=== PATIENT | male | born 1970 | race Hispanic/Latino ===

== ENCOUNTER 2019-12-14 09:49 | Emergency (ER) | payer BC, MEDICARE ==
[2019-12-14 10:33] LABS: Hematocrit 41.9 % (35.5-45.6); Hemoglobin 14.9 gm/dl (11.8-15.2); Mean Corpuscular HGB Conc 36 % (32-34); Mean Corpuscular Volume 89 fl (84-94); Platelet Count 327 K/mm3 (140-440); Red Blood Count 4.73 M/mm3 (3.65-5.03); Red Cell Distribution Width 12.5 % (13.2-15.2)
[2019-12-14 10:38] LABS: Bacteria,Urine 1+ /HPF (Negative); Bilirubin,Urine NEG (Negative); Blood,Urine NEG (Negative); Color,Urine Amber (Yellow); Hyaline Casts,Urine 1 /LPF; Mucus,Urine 1+ /HPF
[2019-12-14 10:50] LABS: Amphetamine Screen,Urine PRESUMPTIVE NEGATIVE; Benzodiazepines Screen,Urine PRESUMPTIVE POSITIVE; Cannabinoid Screen,Urine PRESUMPTIVE POSITIVE; Cocaine Screen,Urine PRESUMPTIVE NEGATIVE; Methadone Screen,Urine PRESUMPTIVE NEGATIVE; Opiate Screen,Urine PRESUMPTIVE NEGATIVE
[2019-12-14 10:53] LABS: Calcium 9.5 mg/dL (8.4-10.2)
--- NOTE | 2019-12-14 11:24 | Emergency Department Report ---
ED General Adult HPI - General Chief complaint: Medical Clearance Stated complaint: PSYCH Time Seen by Provider: 12/14/19 10:18 Source: EMS Mode of arrival: Ambulatory Limitations: Other - History of Present Illness Initial comments: Patient presents to the emergency department via EMS from a local progress. Patient was brought to the emergency department because he was found by others acting strange. 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 Is hard to follow the patient because he has significant flight of ideas. He does state that he has a history of bipolar and schizophrenia but denies schizoaffective disorder. Patient states that his is a [employer] pharmacist and she has been giving him ps ychotropic drugs for years without him knowing about it. He also states that there is multiple infections 1 around the floor of his home including sepsis. -: unknown Severity scale (0 -10): 0 Consistency: constant Improves with: none Worsens with: none Associated Symptoms: denies other symptoms Treatments Prior to Arrival: none - Related Data Home Medications Medication Instructions Recorded Confirmed Last Taken Unobtainable 12/14/19 12/14/19 Unknown Allergies Allergy/AdvReac Type Severity Reaction Status Date / Time No Known Allergies Allergy Unverified 12/14/19 10:08 ED Review of Systems ROS: Stated complaint: PSYCH Other details as noted in HPI Constitutional: denies: chills, fever Eyes: denies: eye pain, eye discharge, vision change ENT: denies: ear pain, throat pain Respiratory: denies: cough, shortness of breath, wheezing Cardiovascular: denies: chest pain, palpitations Endocrine: no symptoms reported Gastrointestinal: denies: abdominal pain, nausea, diarrhea Genitourinary: denies: urgency, dysuria Musculoskeletal: denies: back pain, joint swelling, arthralgia Skin: denies: rash, lesions Neurological: denies: headache, weakness, paresthesias Psychiatric: denies: anxiety, depression, auditory hallucinations, visual hallucinations, homicidal thoughts, suicidal thoughts Hematological/Lymphatic: denies: easy bleeding, easy bruising ED Past Medical Hx - Past Medical History Previous Medical History?: Yes Hx Psychiatric Treatment: Yes (Bipolar) - Social History Smoking Status: Former Smoker Substance Use Type: Marijuana - Medications Home Medications: Home Medications Medication Instructions Recorded Confirmed Last Taken Type Unobtainable 12/14/19 12/14/19 Unknown History ED Physical Exam - General Limitations: No Limitations, Other General appearance: alert, in no apparent distress - Head Head exam: Present: atraumatic, normocephalic - Eye Eye exam: Present: normal appearance - ENT ENT exam: Present: mucous membranes moist - Neck Neck exam: Present: normal inspection - Respiratory Respiratory exam: Present: normal lung sounds bilaterally. Absent: respiratory distress - Cardiovascular Cardiovascular Exam: Present: regular rate, normal rhythm. Absent: systolic murmur, diastolic murmur, rubs, gallop - GI/Abdominal GI/Abdominal exam: Present: soft, normal bowel sounds - Rectal Rectal exam: Present: deferred - Extremities Exam Extremities exam: Present: normal inspection - Back Exam Back exam: Present: normal inspection - Neurological Exam Neurological exam: Present: alert, oriented X3, CN II-XII intact. Absent: motor sensory deficit - Psychiatric Psychiatric exam: Present: other (Paranoid; flight of ideas). Absent: homicidal ideation, suicidal ideation - Skin Skin exam: Present: warm, dry, intact, normal color. Absent: rash ED Course Vital Signs 12/14/19 12/14/19 12/14/19 10:04 10:09 11:05 Temperature 98.2 F Pulse Rate 110 H 95 H Respiratory 18 18 18 Rate Blood Pressure 156/110 Blood Pressure 181/127 [Left] O2 Sat by Pulse 97 97 97 Oximetry 12/14/19 17:28 Temperature 97.8 F Pulse Rate 90 Respiratory 16 Rate Blood Pressure Blood Pressure 147/89 [Left] O2 Sat by Pulse 100 Oximetry ED Medical Decision Making - Lab Data Result diagrams: 12/14/19 10:19 12/14/19 10:19 Lab Results 12/14/19 12/14/19 12/14/19 Range/Units 10:00 10:00 10:19 WBC 7.2 (4.5-11.0) K/mm3 RBC 4.73 (3.65-5.03) M/mm3 Hgb 14.9 (11.8-15.2) gm/dl Hct 41.9 (35.5-45.6) % MCV 89 (84-94) fl MCH 32 (28-32) pg MCHC 36 H (32-34) % RDW 12.5 L (13.2-15.2) % Plt Count 327 (140-440) K/mm3 Keith % (Auto) Cutter [place] Add Manual Diff Complete Total Counted 100 Seg Neuts % (Manual) 70.0 (40.0-70.0) % Band Neutrophils % 0 % Lymphocytes % (Manual) 20.0 (13.4-35.0) % Reactive Lymphs % (Man) 0 % Monocytes % (Manual) 10.0 H (0.0-7.3) % Eosinophils % (Manual) 0 (0.0-4.3) % Basophils % (Manual) 0 (0.0-1.8) % Metamyelocytes % 0 % Myelocytes % 0 % Promyelocytes % 0 % Blast Cells % 0 % Nucleated RBC % Not Reportable Seg Neutrophils # Man 5.0 (1.8-7.7) K/mm3 Band Neutrophils # 0.0 K/mm3 Lymphocytes # (Manual) 1.4 (1.2-5.4) K/mm3 Abs React Lymphs (Man) 0.0 K/mm3 Monocytes # (Manual) 0.7 (0.0-0.8) K/mm3 Eosinophils # (Manual) 0.0 (0.0-0.4) K/mm3 Basophils # (Manual) 0.0 (0.0-0.1) K/mm3 Metamyelocytes # 0.0 K/mm3 Myelocytes # 0.0 K/mm3 Promyelocytes # 0.0 K/mm3 Blast Cells # 0.0 K/mm3 WBC Morphology Not Reportable Hypersegmented Neuts Not Reportable Hyposegmented Neuts Not Reportable Hypogranular Neuts Not Reportable Smudge Cells Not Reportable Toxic Granulation Not Reportable Toxic Vacuolation Not Reportable Dohle Bodies Not Reportable Pelger-Huet Anomaly Not Reportable Adilia Rods Not Reportable Platelet Estimate Consistent w auto Clumped Platelets Not Reportable Plt Clumps, EDTA Not Reportable Large Platelets Rare Giant Platelets Not Reportable Platelet Satelliting Not Reportable Plt Morphology Comment Not Reportable RBC Morphology Normal Dimorphic RBCs Not Reportable Polychromasia Not Reportable Hypochromasia Not Reportable Poikilocytosis Not Reportable Anisocytosis Not Reportable Microcytosis Not Reportable Macrocytosis Not Reportable Spherocytes Not Reportable Pappenheimer Bodies Not Reportable Sickle Cells Not Reportable Target Cells Not Reportable Tear Drop Cells Not Reportable Ovalocytes Not Reportable Helmet Cells Not Reportable Schroeder-[place] Bodies Not Reportable [place] Rings Not Reportable Dre Cells Not Reportable Bite Cells Not Reportable Crenated Cell Not Reportable Elliptocytes Not Reportable Acanthocytes (Spur) Not Reportable Rouleaux Not Reportable Hemoglobin C Crystals Not Reportable Schistocytes Not Reportable Malaria parasites Not Reportable Marky Bodies Not Reportable Hem Pathologist Commnt No Sodium (137-145) mmol/L Potassium (3.6-5.0) mmol/L Chloride (98-107) mmol/L Carbon Dioxide (22-30) mmol/L Anion Gap mmol/L BUN (9-20) mg/dL Creatinine (0.8-1.3) mg/dL Estimated GFR ml/min BUN/Creatinine Ratio % Glucose (75-100) mg/dL Calcium (8.4-10.2) mg/dL Urine Color Rachel (Yellow) Urine Turbidity Slightly-cloudy (Clear) Urine pH 5.0 (5.0-7.0) Ur Specific [place] 1.025 (1.003-1.030) Urine Protein 100 mg/dl (Negative) mg/dL Urine Glucose (UA) Neg (Negative) mg/dL Urine Ketones 20 (Negative) mg/dL Urine Blood Neg (Negative) Urine Nitrite Neg (Negative) Urine Bilirubin Neg (Negative) Urine Urobilinogen 2.0 (<2.0) mg/dL Ur Leukocyte Esterase Sm (Negative) Urine WBC (Auto) 14.0 H (0.0-6.0) /HPF Urine RBC (Auto) 7.0 (0.0-6.0) /HPF U Epithel Cells (Auto) < 1.0 (0-13.0) /HPF Urine Bacteria (Auto) 1+ (Negative) /HPF Hyaline Casts 1 /LPF Urine Mucus 1+ /HPF Salicylates (2.8-20.0) mg/dL Urine Opiates Screen Presumptive negative Urine Methadone Screen Presumptive negative Acetaminophen (10.0-30.0) ug/mL Ur Barbiturates Screen Presumptive negative Ur Phencyclidine Scrn Presumptive negative Ur Amphetamines Screen Presumptive negative U Benzodiazepines Scrn Presumptive positive Urine Cocaine Screen Presumptive negative U Marijuana (THC) Screen Presumptive positive Drugs of Abuse Note Disclamer 12/14/19 12/14/19 12/14/19 Range/Units 10:19 10:19 10:19 WBC (4.5-11.0) K/mm3 RBC (3.65-5.03) M/mm3 Hgb (11.8-15.2) gm/dl Hct (35.5-45.6) % MCV (84-94) fl MCH (28-32) pg MCHC (32-34) % RDW (13.2-15.2) % Plt Count (140-440) K/mm3 Keith % (Auto) Add Manual Diff Total Counted Seg Neuts % (Manual) (40.0-70.0) % Band Neutrophils % % Lymphocytes % (Manual) (13.4-35.0) % Reactive Lymphs % (Man) % Monocytes % (Manual) (0.0-7.3) % Eosinophils % (Manual) (0.0-4.3) % Basophils % (Manual) (0.0-1.8) % Metamyelocytes % % Myelocytes % % Promyelocytes % % Blast Cells % % Nucleated RBC % Seg Neutrophils # Man (1.8-7.7) K/mm3 Band Neutrophils # K/mm3 Lymphocytes # (Manual) (1.2-5.4) K/mm3 Abs React Lymphs (Man) K/mm3 Monocytes # (Manual) (0.0-0.8) K/mm3 Eosinophils # (Manual) (0.0-0.4) K/mm3 Basophils # (Manual) (0.0-0.1) K/mm3 Metamyelocytes # K/mm3 Myelocytes # K/mm3 Promyelocytes # K/mm3 Blast Cells # K/mm3 WBC Morphology Hypersegmented Neuts Hyposegmented Neuts Hypogranular Neuts Smudge Cells Toxic Granulation Toxic Vacuolation Dohle Bodies Pelger-Huet Anomaly Adilia Rods Platelet Estimate Clumped Platelets Plt Clumps, EDTA Large Platelets Giant Platelets Platelet Satelliting Plt Morphology Comment RBC Morphology Dimorphic RBCs Polychromasia Hypochromasia Poikilocytosis Anisocytosis Microcytosis Macrocytosis Spherocytes Pappenheimer Bodies Sickle Cells Target Cells Tear Drop Cells Ovalocytes Helmet Cells Schroeder-[place] Bodies [place] Rings Dre Cells Bite Cells Crenated Cell Elliptocytes Acanthocytes (Spur) Rouleaux Hemoglobin C Crystals Schistocytes Malaria parasites Marky Bodies Hem Pathologist Commnt Sodium 142 (137-145) mmol/L Potassium 3.9 (3.6-5.0) mmol/L Chloride 100.6 (98-107) mmol/L Carbon Dioxide 25 (22-30) mmol/L Anion Gap 20 mmol/L BUN 7 L (9-20) mg/dL Creatinine 1.3 (0.8-1.3) mg/dL Estimated GFR 58 ml/min BUN/Creatinine Ratio 5 % Glucose 108 H (75-100) mg/dL Calcium 9.5 (8.4-10.2) mg/dL Urine Color (Yellow) Urine Turbidity (Clear) Urine pH (5.0-7.0) Ur Specific [place] (1.003-1.030) Urine Protein (Negative) mg/dL Urine Glucose (UA) (Negative) mg/dL Urine Ketones (Negative) mg/dL Urine Blood (Negative) Urine Nitrite (Negative) Urine Bilirubin (Negative) Urine Urobilinogen (<2.0) mg/dL Ur Leukocyte Esterase (Negative) Urine WBC (Auto) (0.0-6.0) /HPF Urine RBC (Auto) (0.0-6.0) /HPF U Epithel Cells (Auto) (0-13.0) /HPF Urine Bacteria (Auto) (Negative) /HPF Hyaline Casts /LPF Urine Mucus /HPF Salicylates < 0.3 L (2.8-20.0) mg/dL Urine Opiates Screen Urine Methadone Screen Acetaminophen 5.0 L (10.0-30.0) ug/mL Ur Barbiturates Screen Ur Phencyclidine Scrn Ur Amphetamines Screen U Benzodiazepines Scrn Urine Cocaine Screen U Marijuana (THC) Screen Drugs of Abuse Note - Radiology Data Radiology results: report reviewed - Medical Decision Making 1013 applied Medically cleared Mental health evaluation.and awaiting placement UTI treated with Bactrim and orders have been placed for her to be given every 12 hours Critical care attestation.: If time is entered above; I have spent that time in minutes in the direct care of this critically ill patient, excluding procedure time. ED Disposition Clinical Impression: Manic behavior, UTI (urinary tract infection) Disposition: [id number]/TX-[id number] PSY HOSP/PSY UNIT Is pt being admited?: No Does the pt Need Aspirin: No Condition: Stable Referrals: PRIMARY CARE, [Primary Care Provider] - 3-5 Days
[2019-12-14 11:53] LABS: Basophils % (Manual) 0 % (0.0-1.8); Eosinophils % (Manual) 0 % (0.0-4.3); Large Platelets Rare; Platelet Estimate Consistent w Auto; RBC Morphology Normal; Total Cells Counted 100
[2019-12-14] MEDS ORDERED: LORazepam 2 MG/ML VIAL ONE (12:33)
[2019-12-14] MEDS ORDERED: LORazepam 2 MG/ML VIAL IM ONE (12:57)
[2019-12-14] MEDS ORDERED: ZIPRASIDONE MESYLATE 20 MG VIAL IM ONE ×2 (20:23→20:40)
[2019-12-14] MEDS: SULFAMETHOXAZOLE/TRIMETHOPRIM 800/160MG DS TAB PO SCH ×2 (20:50→22:10)
[2019-12-15] MEDS ORDERED: ZIPRASIDONE MESYLATE 20 MG VIAL IM ONE ×2 (09:49→09:50)
[2019-12-15] MEDS ORDERED: LORazepam 2 MG/ML VIAL IM ONE (09:50)
[2019-12-15] MEDS ORDERED: WATER FOR INJ Sterile (PF) 10 ML ONE (09:50)
[2019-12-15] MEDS: SULFAMETHOXAZOLE/TRIMETHOPRIM 800/160MG DS TAB PO SCH (10:23)
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
[2019-12-15] MEDS: VALPROIC ACID 250 MG CAP PO SCH ×2 (13:53→20:17)
[2019-12-15] MEDS ORDERED: PALIPERIDONE ER 3 MG TAB PO ONE (15:46)
[2019-12-15 20:15] VITALS: BP 153/104
== END 2019-12-15 20:29 ==
LOC: ED 09:49
DX: F30.10 Manic episode without psychotic symptoms, unspecified (principal); N39.0 Urinary tract infection, site not specified; F25.0 Schizoaffective disorder, bipolar type; F12.90 Cannabis use, unspecified, uncomplicated; Z87.891 Personal history of nicotine dependence; Z20.828 Contact with and (suspected) exposure to other viral communicable diseases
CPT/HCPCS: 36415; 80048; 80307; 81001; 85007; 85025; 87086; 93005; 96372; 99284; J2060; J3486; U0003; 80320; G0480

== ENCOUNTER 2019-12-15 18:27 | Inpatient (IN) | payer MEDICARE, OTHER ==
[2019-12-15] MEDS ORDERED: HALOPERIDOL LACTATE 5 MG/1 ML INJ IM PRN (19:32)
[2019-12-15] MEDS: traZODone 50 MG TAB PO SCH (22:04)
[2019-12-15] MEDS: MELATONIN 5 MG TAB PO PRN (22:04)
[2019-12-15] MEDS: VALPROIC ACID 250 MG CAP PO SCH (22:04)
[2019-12-15] MEDS: LORazepam 2 MG/ML VIAL IM PRN (23:25)
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
[2019-12-16] MEDS: VALPROIC ACID 250 MG CAP PO SCH ×2 (09:04→21:40)
[2019-12-16] MEDS: PALIPERIDONE ER 3 MG TAB PO SCH (09:04)
[2019-12-16] MEDS: LORazepam 2 MG/ML VIAL IM PRN (12:00)
[2019-12-16] MEDS ORDERED: HALOPERIDOL LACTATE 5 MG/1 ML INJ IM PRN (12:01)
[2019-12-16] MEDS ORDERED: BENZTROPINE 2 MG/2 ML INJ IM SCH (13:00)
[2019-12-16 17:29] LABS: Chol/HDL Ratio 3.6 %
[2019-12-16] MEDS: traZODone 50 MG TAB PO SCH (21:40)
--- NOTE | 2019-12-17 07:40 | Consultation ---
History of Present Illness - Reason for Consult Consult date: 12/17/19 Medical management Requesting physician: SATHISH SHELBY - History of Present Illness 49-year-old male with psychiatric history was admitted to [facility] for bizarre behavior. Patient did not have any known medical condition. Blood pressure is within normal limit, labs are unremarkable. Patient did not have any complaints. The only thing she said he had is stress and anxiety. REVIEW OF SYSTEMS: GENERAL: no weight change, no fatigue, no fever HEAD: no head ache EYES: no blurry vision, no acute visual loss EARS: no hearing loss, no discharge, no earache NOSE: no stuffiness, no sneezing, no discharge MOUTH, THROAT AND NECK: no bleeding gums, no sore throat, no swollen neck CARDIAC: no palpitations, no dyspnea on exertion, no orthopnea, no PND, no edema, no chest pain RESPIRATORY: no shortness of breath, no wheeze, no cough, no sputum, no hemoptysis, no asthma GI: no decreased appetite, no nausea, no vomiting, no dysphagia, no diarrhea, no constipation, no abdominal pain URINARY: No urgency, hematuria, dysuria or frequency. MUSCULOSKELETAL: no muscle weakness, no pain, no joint stiffness NEUROLOGIC: no loss of sensation/numbness, no tingling, no tremors, no weakness/paralysis HEMATOLOGIC: no anemia, no easy bruising SKIN: no rashes ENDOCRINE: no heat/cold intolerance, no polyuria, no polydipsia, no thyroid problems, no diabetes PSYCHIATRIC: no anxiety, no depression, no suicidal ideations Past History Past Medical History: No medical history Past Surgical History: Other (Chest tube insertion for pneumothorax, back surgery) Social history: smoking (Patient smokes marijuana), full code. denies: alcohol abuse, prescription drug abuse, IV drug use Family history: no significant family history Medications and Allergies Allergies Allergy/AdvReac Type Severity Reaction Status Date / Time No Known Allergies Allergy Unverified 12/14/19 10:08 Home Medications Medication Instructions Recorded Confirmed Last Taken Type Bactrim DS TAB 1 tab PO BID 12/16/19 12/16/[address] 250 mg PO BID 12/16/19 12/16/19 Unknown History Active Meds: Active Medications Benztropine Mesylate (Cogentin) 2 mg IM PRN DAVID Stop: 12/17/19 13:01 Last Admin: 12/16/19 12:57 Dose: 2 mg Documented by: Haloperidol Lactate (Haldol) 5 mg IM ONCE PRN PRN Reason: Agitation Last Admin: 12/15/19 23:24 Dose: 5 mg Documented by: Haloperidol Lactate (Haldol) 10 mg IM ONCE PRN PRN Reason: Agitation Last Admin: 12/16/19 12:07 Dose: 10 mg Documented by: Lorazepam (Ativan) 2 mg IM Q4HR PRN PRN Reason: Agitation Last Admin: 12/15/19 23:25 Dose: 2 mg Documented by: Melatonin (Melatonin) 5 mg PO QHS PRN PRN Reason: Sleep Last Admin: 12/15/19 22:04 Dose: 5 mg Documented by: Paliperidone (Invega) 6 mg PO QDAY [facility] Last Admin: 12/16/19 09:04 Dose: 6 mg Documented by: Trazodone HCl (Desyrel) 50 mg PO QHS [facility] Last Admin: 12/16/19 21:40 Dose: 50 mg Documented by: Valproic Acid (Depakene) 250 mg PO BID [facility] Last Admin: 12/16/19 21:40 Dose: 250 mg Documented by: Exam - Physical Exam Narrative exam: Not in cardiopulmonary distress. The patient appeared well nourished and normally developed. Vital signs as documented. Head exam is unremarkable. No scleral icterus . Neck is without jugular venous distension, thyromegaly, or carotid bruits. Lungs are clear to auscultation. Cardiac exam reveals regular rate and Rhythm. Abdominal exam reveals normal bowel sounds, nontender, no organomegaly. Extremities are nonedematous and both femoral and pedal pulses are normal. RIPSHEAR OPERATOR: Alert and oriented 3. No focal weakness. - Constitutional Vitals: Temp Pulse Resp BP Pulse Ox 97.6 F 77 18 118/71 95 12/16/19 22:00 12/16/19 22:00 12/16/19 22:00 12/16/19 22:00 12/16/19 22:00 Assessment and Plan Patient admitted to [facility] for bizarre behavior And is on Depakote No previous medical conditions, labs and vital signs are unremarkable. Physical examination is normal. Thank you for the consult Please give me a call if you have any questions.
[2019-12-17] MEDS: PALIPERIDONE ER 3 MG TAB PO SCH (09:54)
[2019-12-17] MEDS: VALPROIC ACID 250 MG CAP PO SCH ×2 (09:54→22:26)
--- NOTE | 2019-12-17 13:32 | Progress Note ---
Subjective Date of service: 12/17/19 Principal diagnosis: Bipolar Subjective Comment: During my interview with the patient, he is in the dayroom, he is a/o x 3. He says "I don't want to discuss it" when I ask him why he's here. He denies SI/HI. He also denies hallucinations of any kind. The nursing staff states the patient is hyperverbal, verbally aggressive, and delusional. Reason for continued inpatient treatment: The patient continues to be manic and have behavioral disturbances REVIEW OF SYSTEMS Constitutional: Negative for weight loss ENT: Negative for stridor Respiratory: Negative for cough or hemoptysis All other systems reviewed and are negative MENTAL STATUS EXAMINATION General Appearance and Behavior: Age appropriate, good hygiene, not wearing appropriate clothes, good eye contact, cooperative polite with questioning. Cooperation: Participating/engaged Psychomotor Behavior: Psychomotor agitation Mood: Good Affect and affective range: euthymic, euphoric Thought Process:Circumstantial, Illogical, Thought Content: Illogical Speech: Hyperverbal at times Suicidal Ideation: Denies SI Homicidal Ideation: Denies HIl Impulse Control: Impaired Insight and Judgment: Limited insight and judgment Memory: Normal, Attention: Divided attention impaired Orientation: Alert, oriented, Assessment and Plan (1) Bipolar 1 disorder with moderate rupal Current Visit: Yes Status: Acute Treatment Plan Patient admitted for inpatient psychiatric evaluation, medication adjustment and close monitoring The patient's behavior, mood, sleep and appetite will be closely monitored. Patient enrolled in individual and group therapeutic sessions and encouraged to attend. Patient provided with a safe and structured environment. Patient's physical health needs will be addressed by the Hospitalist. Hospitalist Consulted Labs including CBC, CMP, Lipid profile and Hemoglobin A1C levels ordered for baseline reference Valproic level friday Social Assessment will be completed and the Customs Patrol Officer will work with patient and family to ensure a suitable and safe disposition Medication adjustment will be made as clinically indicated Increase Depakote DR 500mg po BID Usual Wellness Orthodox/Preservation: - Start Trazodone 50 mg po QHS & 50 mg po QHS PRN between 10 PM & 2 AM for insomnia - Start Melatonin 5 mg po QHS to promote circadian rhythm - Start [place]-3 for brain health, reduce impulsivity, and as adjunctive treatment for mood disorder, continue upon discharge given overall benefits. - Start B1 prophylaxis with 200 mg po for 5 days The patient agreed on the treatment plan, understood the risk, benefit, alternative treatment, potential consequence of no treatment, and gave informed consent. Medications and Allergies Allergies Allergy/AdvReac Type Severity Reaction Status Date / Time No Known Allergies Allergy Unverified 12/14/19 10:08 Home Medications Medication Instructions Recorded Confirmed Last Taken Type Bactrim DS TAB 1 tab PO BID 12/16/19 12/16/[address] 250 mg PO BID 12/16/19 12/16/19 Unknown History Active Meds: Active Medications Haloperidol Lactate (Haldol) 10 mg IM ONCE PRN PRN Reason: Agitation Last Admin: 12/16/19 12:07 Dose: 10 mg Documented by: Lorazepam (Ativan) 2 mg IM Q4HR PRN PRN Reason: Agitation Last Admin: 12/15/19 23:25 Dose: 2 mg Documented by: Melatonin (Melatonin) 5 mg PO QHS PRN PRN Reason: Sleep Last Admin: 12/15/19 22:04 Dose: 5 mg Documented by: Paliperidone (Invega) 6 mg PO QDAY [facility] Last Admin: 12/17/19 09:54 Dose: 6 mg Documented by: Trazodone HCl (Desyrel) 50 mg PO QHS [facility] Last Admin: 12/16/19 21:40 Dose: 50 mg Documented by: Valproic Acid (Depakene) 250 mg PO BID [facility] Last Admin: 12/17/19 09:54 Dose: 250 mg Documented by: Results - Results Labs/Vitals: Laboratory Last Values POC Glucose 95 mg/dL (70-105) 12/15/19 21:59 Hemoglobin A1c 5.8 % (4-6) 12/16/19 16:50 Triglycerides 133 mg/dL (2-149) 12/16/19 16:50 Cholesterol 191 mg/dL (50-199) 12/16/19 16:50 LDL Cholesterol Direct 122 mg/dL (50-130) 12/16/19 16:50 HDL Cholesterol 53 mg/dL (40-59) 12/16/19 16:50 Cholesterol/HDL Ratio 3.60 % 12/16/19 16:50 TSH 1.150 mlU/mL (0.270-4.200) 12/16/19 16:50 Last Vital Signs Temp 98.0 F 12/17/19 07:12 Pulse 97 H 12/17/19 07:12 Resp 18 12/17/19 07:12 BP 115/75 12/17/19 07:12 Pulse Ox 95 12/17/19 07:12
[2019-12-17] MEDS ORDERED: VALPROIC ACID 250 MG CAP PO ONE (14:00)
[2019-12-17] MEDS: traZODone 50 MG TAB PO SCH (22:25)
[2019-12-18] MEDS: VALPROIC ACID 250 MG CAP PO SCH ×2 (10:45→21:25)
--- NOTE | 2019-12-18 13:30 | Progress Note ---
Subjective Date of service: 12/18/19 Principal diagnosis: Bipolar Subjective Comment: The patient's medical record was reviewed and the patient's progress was discussed with the nursing staff. The activity therapist note states the patient placed his feet on the table and was redirected again. pt was aggressively cooperative aeb throwing his blanket down and placing his feet off the table firmly. During my interview with the patient, he is in the dayroom, he is a/o x 3. He says, "I'm doing fine" when asked. He says "I didn't sleep too good." The patient denies SI/HI, stating I never had. He also denies hallucinations at times. Reason for continued inpatient treatment: The patient continues to be manic and have behavioral disturbances REVIEW OF SYSTEMS Constitutional: Negative for weight loss ENT: Negative for stridor Respiratory: Negative for cough or hemoptysis All other systems reviewed and are negative MENTAL STATUS EXAMINATION General Appearance and Behavior: Age appropriate, good hygiene, not wearing appropriate clothes, good eye contact, cooperative polite with questioning. Cooperation: Participating/engaged Psychomotor Behavior: Psychomotor agitation Mood: Good Affect and affective range: euthymic, euphoric Thought Process:Circumstantial, Illogical, Thought Content: Illogical Speech: Hyperverbal at times Suicidal Ideation: Denies SI Homicidal Ideation: Denies HIl Impulse Control: Impaired Insight and Judgment: Limited insight and judgment Memory: Normal, Attention: Divided attention impaired Orientation: Alert, oriented, Assessment and Plan (1) Bipolar 1 disorder with moderate rupal Current Visit: Yes Status: Acute Treatment Plan Patient admitted for inpatient psychiatric evaluation, medication adjustment and close monitoring The patient's behavior, mood, sleep and appetite will be closely monitored. Patient enrolled in individual and group therapeutic sessions and encouraged to attend. Patient provided with a safe and structured environment. Patient's physical health needs will be addressed by the Hospitalist. Hospitalist Consulted Labs including CBC, CMP, Lipid profile and Hemoglobin A1C levels ordered for baseline reference Valproic level Friday Social Assessment will be completed and the Ore Buyer will work with patient and family to ensure a suitable and safe disposition Medication adjustment will be made as clinically indicated Increase Depakote DR 500mg po BID yesterday Increased Trazodone 75mg po qhs Usual Wellness Restorationism/Preservation: - Start Trazodone 50 mg po QHS & 50 mg po QHS PRN between 10 PM & 2 AM for insomnia - Start Melatonin 5 mg po QHS to promote circadian rhythm - Start [place]-3 for brain health, reduce impulsivity, and as adjunctive treatment for mood disorder, continue upon discharge given overall benefits. - Start B1 prophylaxis with 200 mg po for 5 days The patient agreed on the treatment plan, understood the risk, benefit, alternative treatment, potential consequence of no treatment, and gave informed consent. Medications and Allergies Allergies Allergy/AdvReac Type Severity Reaction Status Date / Time No Known Allergies Allergy Unverified 12/14/19 10:08 Home Medications Medication Instructions Recorded Confirmed Last Taken Type Bactrim DS TAB 1 tab PO BID 12/16/19 12/16/[address] 250 mg PO BID 12/16/19 12/16/19 Unknown History Active Meds: Active Medications Haloperidol Lactate (Haldol) 10 mg IM ONCE PRN PRN Reason: Agitation Last Admin: 12/16/19 12:07 Dose: 10 mg Documented by: Lorazepam (Ativan) 2 mg IM Q4HR PRN PRN Reason: Agitation Last Admin: 12/15/19 23:25 Dose: 2 mg Documented by: Melatonin (Melatonin) 5 mg PO QHS PRN PRN Reason: Sleep Last Admin: 12/15/19 22:04 Dose: 5 mg Documented by: Paliperidone (Invega) 6 mg PO QDAY [facility] Last Admin: 12/17/19 09:54 Dose: 6 mg Documented by: Trazodone HCl (Desyrel) 50 mg PO QHS [facility] Last Admin: 12/17/19 22:25 Dose: 50 mg Documented by: Valproic Acid (Depakene) 500 mg PO BID [facility] Last Admin: 12/17/19 22:26 Dose: 500 mg Documented by: Results - Results Labs/Vitals: Laboratory Last Values POC Glucose 95 mg/dL (70-105) 12/15/19 21:59 Hemoglobin A1c 5.8 % (4-6) 12/16/19 16:50 Triglycerides 133 mg/dL (2-149) 12/16/19 16:50 Cholesterol 191 mg/dL (50-199) 12/16/19 16:50 LDL Cholesterol Direct 122 mg/dL (50-130) 12/16/19 16:50 HDL Cholesterol 53 mg/dL (40-59) 12/16/19 16:50 Cholesterol/HDL Ratio 3.60 % 12/16/19 16:50 TSH 1.150 mlU/mL (0.270-4.200) 12/16/19 16:50 Last Vital Signs Temp 97.9 F 12/17/19 22:00 Pulse 77 12/17/19 22:00 Resp 16 12/17/19 22:00 BP 124/83 12/17/19 22:00 Pulse Ox 96 12/17/19 22:00
[2019-12-18] MEDS: PALIPERIDONE ER 3 MG TAB PO SCH (16:20)
[2019-12-18] MEDS ORDERED: traZODone 50 MG TAB PO SCH (22:00)
[2019-12-19] MEDS: PALIPERIDONE ER 3 MG TAB PO SCH (10:29)
[2019-12-19] MEDS: VALPROIC ACID 250 MG CAP PO SCH ×2 (10:29→21:06)
--- NOTE | 2019-12-19 12:04 | Progress Note ---
Subjective Date of service: 12/19/19 Principal diagnosis: Bipolar Subjective Comment: The patient's medical record was reviewed and the patient's progress was discussed with the nursing staff. The patient spent the evening isolated in his room. He presents as depressed. He was encouraged to join his peers but stated he didn't want to right now. The patient is pleasant and cooperative with staff. During my interview with the patient, he is in the dayroom, he is a/o x 3. He says, "I'm okay when asked." He then says "I'm tired. I didn't get a good night's sleep last night." He denies hallucinations of any kind. He also denies SI/HI. Reason for continued inpatient treatment: The patient at times has aggressive behavior, appears depressed and isolates himself. REVIEW OF SYSTEMS Constitutional: Negative for weight loss ENT: Negative for stridor Respiratory: Negative for cough or hemoptysis All other systems reviewed and are negative MENTAL STATUS EXAMINATION General Appearance and Behavior: Age appropriate, good hygiene, not wearing appropriate clothes, fair eye contact, cooperative polite with questioning. Cooperation: Participating/engaged Psychomotor Behavior: Psychomotor agitation Mood: okay Affect and affective range: Restricted Thought Process:Circumstantial, Illogical, Thought Content: Logical Speech: Normal tone and pace Suicidal Ideation: Denies SI Homicidal Ideation: Denies HIl Impulse Control: Impaired Insight and Judgment: Limited insight and judgment Memory: Normal Orientation: Alert, oriented, Assessment and Plan (1) Bipolar 1 disorder with moderate rupal Current Visit: Yes Status: Acute Treatment Plan Patient admitted for inpatient psychiatric evaluation, medication adjustment and close monitoring The patient's behavior, mood, sleep and appetite will be closely monitored. Patient enrolled in individual and group therapeutic sessions and encouraged to attend. Patient provided with a safe and structured environment. Patient's physical health needs will be addressed by the Hospitalist. Hospitalist Consulted Labs including CBC, CMP, Lipid profile and Hemoglobin A1C levels ordered for baseline reference Valproic level Friday Social Assessment will be completed and the [facility] will work with patient and family to ensure a suitable and safe disposition Medication adjustment will be made as clinically indicated Will adjust Depakote dose based on Valproic level tomorrow. Increased Trazodone 100mg po qhs Usual Wellness Restorationism/Preservation: - Start Trazodone 50 mg po QHS & 50 mg po QHS PRN between 10 PM & 2 AM for insomnia - Start Melatonin 5 mg po QHS to promote circadian rhythm - Start [place]-3 for brain health, reduce impulsivity, and as adjunctive treatment for mood disorder, continue upon discharge given overall benefits. - Start B1 prophylaxis with 200 mg po for 5 days The patient agreed on the treatment plan, understood the risk, benefit, alternative treatment, potential consequence of no treatment, and gave informed consent. Medications and Allergies Allergies Allergy/AdvReac Type Severity Reaction Status Date / Time No Known Allergies Allergy Unverified 12/14/19 10:08 Home Medications Medication Instructions Recorded Confirmed Last Taken Type Bactrim DS TAB 1 tab PO BID 12/16/19 12/16/[address] 250 mg PO BID 12/16/19 12/16/19 Unknown History Active Meds: Active Medications Haloperidol Lactate (Haldol) 10 mg IM ONCE PRN PRN Reason: Agitation Last Admin: 12/16/19 12:07 Dose: 10 mg Documented by: Lorazepam (Ativan) 2 mg IM Q4HR PRN PRN Reason: Agitation Last Admin: 12/15/19 23:25 Dose: 2 mg Documented by: Melatonin (Melatonin) 5 mg PO QHS PRN PRN Reason: Sleep Last Admin: 12/15/19 22:04 Dose: 5 mg Documented by: Paliperidone (Invega) 6 mg PO QDAY [facility] Last Admin: 12/19/19 10:29 Dose: 6 mg Documented by: Trazodone HCl (Desyrel) 75 mg PO QHS [facility] Last Admin: 12/18/19 21:24 Dose: 75 mg Documented by: Valproic Acid (Depakene) 500 mg PO BID [facility] Last Admin: 12/19/19 10:29 Dose: 500 mg Documented by: Results - Results Labs/Vitals: Laboratory Last Values POC Glucose 95 mg/dL (70-105) 12/15/19 21:59 Hemoglobin A1c 5.8 % (4-6) 12/16/19 16:50 Triglycerides 133 mg/dL (2-149) 12/16/19 16:50 Cholesterol 191 mg/dL (50-199) 12/16/19 16:50 LDL Cholesterol Direct 122 mg/dL (50-130) 12/16/19 16:50 HDL Cholesterol 53 mg/dL (40-59) 12/16/19 16:50 Cholesterol/HDL Ratio 3.60 % 12/16/19 16:50 TSH 1.150 mlU/mL (0.270-4.200) 12/16/19 16:50 Last Vital Signs Temp 97.9 F 12/19/19 09:06 Pulse 72 12/18/19 20:09 Resp 18 12/19/19 09:06 BP 117/75 12/19/19 09:06 Pulse Ox 97 12/18/19 20:09
[2019-12-19] MEDS: MELATONIN 5 MG TAB PO PRN (21:06)
[2019-12-19] MEDS ORDERED: traZODone 100 MG TAB PO SCH (22:00)
[2019-12-20 08:51] VITALS: BP 113/59
[2019-12-20] MEDS: VALPROIC ACID 250 MG CAP PO SCH (09:07)
[2019-12-20] MEDS: PALIPERIDONE ER 3 MG TAB PO SCH (09:07)
--- NOTE | 2019-12-20 09:20 | Discharge Summary ---
Providers - Providers Date of Admission: 12/15/19 21:20 Date of discharge: 12/20/19 Attending physician: STEPHANIE KERNS MD 12/15/19 19:30 Consult to Physician [CONS] Routine Comment: Consulting Provider: STEPHANIE OCHOA Physician Instructions: Reason For Exam: Medical Management Primary care physician: RUBBER MIXER Hospitalization Reason for admission: aggression Admitting Diagnosis: F31.2 - BIPOLAR DISORD, CRNT EPISODE MANIC SEVERE W PSYCH FEATURES Condition: Stable Hospital course: The patient was provided inpatient psychiatric treatment with safe and supportive care, medication adjustment, adverse effect monitoring, medical evaluations, medical treatments, assessment and psycho-education. The patient's mood, cognition, behavior, moral support are improved and stabilized. St the time of discharge, the patient had no endangering behavior and no debilitating adverse effects. The patient agreed on potential consequences of no treatment and gave informed consent. Disposition: DC-01 TO HOME OR SELFCARE Time spent for discharge: 38 Allergies/Adverse Reactions: Allergies No Known Allergies Allergy (Unverified 12/14/19 10:08) Vital Signs: Last Vital Signs Temp 97.8 F 12/20/19 07:13 Pulse 80 12/20/19 07:13 Resp 18 12/20/19 07:13 BP 113/59 12/20/19 07:13 Pulse Ox 94 12/20/19 07:13 Last Lab: Laboratory Last Values POC Glucose 95 mg/dL (70-105) 12/15/19 21:59 Hemoglobin A1c 5.8 % (4-6) 12/16/19 16:50 Triglycerides 133 mg/dL (2-149) 12/16/19 16:50 Cholesterol 191 mg/dL (50-199) 12/16/19 16:50 LDL Cholesterol Direct 122 mg/dL (50-130) 12/16/19 16:50 HDL Cholesterol 53 mg/dL (40-59) 12/16/19 16:50 Cholesterol/HDL Ratio 3.60 % 12/16/19 16:50 TSH 1.150 mlU/mL (0.270-4.200) 12/16/19 16:50 Core Measure Documentation - Palliative Care Palliative Care/ Comfort Measures: Not Applicable - Core Measures Any of the following diagnoses?: none Exam - Constitutional Vitals: Temp Pulse Resp BP Pulse Ox 97.8 F 80 18 113/59 94 12/20/19 07:13 12/20/19 07:13 12/20/19 07:13 12/20/19 07:13 12/20/19 07:13 General appearance: Present: no acute distress - EENT Eyes: Present: PERRL, EOM intact ENT: hearing intact, clear oral mucosa - Neck Neck: Present: supple, normal ROM - Respiratory Respiratory effort: normal Plan Activity: advance as tolerated Weight Bearing Status: Weight Bear as Tolerated Care Plan Goals: maintain good and stable mental health Plan of Treatment: The patient should be compliant with medications, not to use drugs, and not to drink alcohol. The patient understands that if suicidal ideas, homicidal ideas or any endangering feeling arise, the patient should seek assistance including, but not limited to crisis hotline, and emergency room. Assessment: Bipolar Disorder w/[facility] Follow up with: PRIMARY CARE, [Primary Care Provider] - 7 Days Prescriptions: traZODone [Desyrel] 100 mg PO QHS #30 tablet Melatonin [Melatonin 5MG TAB] 5 mg PO QHS PRN #30 tablet PRN Reason: Sleep Valproic Acid [Depakene] 500 mg PO BID #120 capsule Paliperidone [Invega] 6 mg PO QDAY #120 tablet
== END 2019-12-20 14:01 | disposition home or self-care (01) | DRG 885 ==
LOC: 3A 18:27 → UNDOADMIN 18:27 → 5A 21:20
PROVIDERS: ADMIT Psychiatry & Neurology Psychiatry; ATTEND Psychiatry & Neurology Psychiatry
DX: F31.2 Bipolar disorder, current episode manic severe with psychotic features (principal)
CPT/HCPCS: 36415; 80061; 80164; 82962; 83036; 84443; G0378; J0515; J1630; J2060